=== PATIENT | male | born 1970 ===

== ENCOUNTER → 2023-09-03 08:24 | Outpatient (BNVA) | payer OTHER, SELFPAY | PROVIDERS: Visit Provider Registered Nurse | DX: S83.411A Sprain of medial collateral ligament of right knee, initial encounter (principal); W17.89XA Other fall from one level to another, initial encounter | CPT/HCPCS: 73564; 99204 ==

== ENCOUNTER → 2023-09-09 07:50 | Outpatient (BNVA) | payer OTHER, SELFPAY | PROVIDERS: Visit Provider Registered Nurse | DX: S83.411A Sprain of medial collateral ligament of right knee, initial encounter (principal); W17.89XA Other fall from one level to another, initial encounter | CPT/HCPCS: 99213 ==

== ENCOUNTER → 2023-09-15 07:52 | Outpatient (BNVA) | payer OTHER, SELFPAY | PROVIDERS: Visit Provider Registered Nurse | DX: S83.411A Sprain of medial collateral ligament of right knee, initial encounter (principal); W17.89XA Other fall from one level to another, initial encounter | CPT/HCPCS: 73610; 99214 ==

== ENCOUNTER → 2023-09-19 14:43 | Outpatient (BNVA) | payer OTHER, SELFPAY | PROVIDERS: Visit Provider Registered Nurse | DX: S83.411A Sprain of medial collateral ligament of right knee, initial encounter (principal); W17.89XA Other fall from one level to another, initial encounter | CPT/HCPCS: 99213 ==

== ENCOUNTER → 2023-09-30 10:17 | Outpatient (BNVA) | payer OTHER, SELFPAY | PROVIDERS: PCP Internal Medicine; Visit Provider Physician Assistant Medical | DX: S46.811A Strain of other muscles, fascia and tendons at shoulder and upper arm level, right arm, initial encounter (principal); S83.411A Sprain of medial collateral ligament of right knee, initial encounter; W17.89XA Other fall from one level to another, initial encounter | CPT/HCPCS: 73700; 99214 ==

== ENCOUNTER → 2023-10-14 10:03 | Outpatient (BNVA) | payer OTHER, SELFPAY | PROVIDERS: PCP Internal Medicine; Visit Provider Physician Assistant Medical | DX: S83.411D Sprain of medial collateral ligament of right knee, subsequent encounter (principal); S80.01XD Contusion of right knee, subsequent encounter; W17.89XD Other fall from one level to another, subsequent encounter | CPT/HCPCS: 99214 ==

== ENCOUNTER 2023-10-22 11:00 | Outpatient (RCR) | payer OTHER, SELFPAY ==
--- NOTE | 2023-10-01 11:37 | MHC.PT.EP ---
[facility] [place] Office [place] Office [place] Office [address] Jayesh Jeff [address] [phone] F: [phone] F: [phone] F: [phone] F: [phone] Physical Therapy Plan of Care Date of Evaluation: 10/01/23 Date of Surgery: Diagnosis: B knee pain Assessment: 53 y/o male referred to PT from work connection with B knee pain. 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 He has been OOW since injury and reports pain and difficulty with squatting, walking, standing, kneeling, stairs, sleeping, and work duties (climbing, squatting, crawling under truck, lifting). Examination shows hematoma medial tibial plateau region ~6x6cm, TTP in that region, poor patella mobility, decreased knee flexion ROM (most likely d/t hematoma compression), decreased R LE strength (most likely d/t pain) and impaired gait pattern. Educated pt on hematoma management and desensitization. Recommend PT 2x/week for 5 weeks to address impairments, implement HEP, and optimize functional mobility Frequency and Duration: The patient will be seen 2x/week for 5 weeks Short Term Goals: 3 weeks I with HEP Pt will reports 50% decrease in pain with functional mobility Volunteer Patient Representative Goals: 5 weeks I with HEP and self management of sx Pt will improve LEFS to 40/80 to show functional improvement (IR 19/80) Pt will be able to ambulate without limp > 20 min and pain < 3/10 Treatment Plan: Modalities to reduce pain, spasms and effusion. Manual therapy to restore motion and function. Therapeutic exercise to improve strength and flexibility. Neuromuscular re-education for posture and balance. Therapeutic activities to return to functional activities of daily living. Electronically signed by: Maddy Mei PT Please sign and return to therapist. Thank you for your referral.
--- NOTE | 2023-12-09 11:46 | MHC.PT.EP ---
[facility] [place] Office [place] Office [place] Office [address] Jayesh Jeff [address] [phone] F: [phone] F: [phone] F: [phone] F: [phone] Physical Therapy Plan of Care Date of Evaluation: 10/01/23 Date of Surgery: Diagnosis: B knee pain Assessment: 53 y/o male referred to PT from work connection with B knee pain. 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 He has been OOW since injury and reports pain and difficulty with squatting, walking, standing, kneeling, stairs, sleeping, and work duties (climbing, squatting, crawling under truck, lifting). Examination shows hematoma medial tibial plateau region ~6x6cm, TTP in that region, poor patella mobility, decreased knee flexion ROM (most likely d/t hematoma compression), decreased R LE strength (most likely d/t pain) and impaired gait pattern. Educated pt on hematoma management and desensitization. 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 Manual therapy to restore motion and function. Therapeutic exercise to improve strength and flexibility. Neuromuscular re-education for posture and balance. Therapeutic activities to return to functional activities of daily living. Electronically signed by: Maddy Mei PT Please sign and return to therapist. Thank you for your referral.
--- NOTE | 2023-12-09 11:47 | MHC.PT.DC ---
[facility] [place] Office [place] Office [place] Office [address] Jayesh Jeff 140 [facility] [phone] F: [phone] F: [phone] F: [phone] F: [phone] Physical Therapy Discharge Report Diagnosis: B knee pain Date of Surgery: Date of Evaluation: 10/01/23 Date of Discharge: 12/09/23 Treatments to Date: 7 Cancellations to Date: 0 No Shows to Date: 0 Discharge Status: Independent with HEP Recommend MD Follow-up Discharge Summary: Pt called to cancel remaining appointments reporting he will be referred to ortho for further management. At time of last appointment, he had made some functional gains such as more symmetrical gait pattern Electronically signed by: Maddy Mei PT Please sign and return to therapist. Thank you for your referral.
== END 2023-12-09 11:47 | disposition home or self-care (01) ==
LOC: HO.PT 11:00
PROVIDERS: PCP Internal Medicine; Visit Provider Registered Nurse
DX: M25.561 Pain in right knee (principal)
CPT/HCPCS: 97110; 97140; 97161; 97530

== ENCOUNTER 2023-10-29 14:18 | Outpatient (REF) | payer OTHER, SELFPAY ==
--- NOTE | ~2023-10-29 | XR_ITS ---
EXAMINATION: XR KNEE, RIGHT CLINICAL INFORMATION: Right knee pain. COMPARISON: CT dated 09/30/2023. TECHNIQUE: AP, lateral, tunnel, and sunrise views of the right knee. FINDINGS: Tricompartmental marginal osteophytes. Joint spaces appear relatively well preserved. No joint effusion. Small enthesopathic spur at the quadriceps tendon insertion on the patella. No fracture or malalignment. Soft tissues of the anteromedial aspect of the tibial plateau appear less swollen as compared to prior, consistent with improvement in the previously seen hematoma. XR/XR knee RT 3V IMPRESSION: 1. No acute osseous findings. 2. Minimal tricompartmental osteoarthritis. 3. Improving soft tissue swelling at the anteromedial aspect of the tibial plateau. Electronically signed by: Allan Mueller MD 11/18/2023 10:44 PM EDT
== END 2023-10-29 14:19 | disposition home or self-care (01) ==
LOC: HO.HOSX 14:18
PROVIDERS: PCP Internal Medicine; Visit Provider Orthopaedic Surgery
DX: M25.561 Pain in right knee (principal)
CPT/HCPCS: 73562; 99202

== ENCOUNTER 2023-10-29 14:50 | Outpatient (AMB) | payer OTHER, SELFPAY ==
--- NOTE | 2023-10-29 14:52 | A.OFFVIS_ITS ---
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 Patient reports he fell from a box truck 4 feet from the ground landing on to his right knee while working. The patient twisted his right knee and had acute onset of pain. He denies any pain or instability prior to this injury. Most of the pain is along the medial aspect of his knee. States that the hematoma has resolved somewhat. He has done physical therapy exercises which aggravated his pain. He has tried Tylenol and meloxicam which gave him minimal relief. Allergies No Known Allergies Allergy (Verified 10/29/23 14:59) Medication List - Last Reconciled 10/29/23 by Tony Short MD cyclobenzaprine 10 mg PO BEDTIME PRN meloxicam 1 to 2 orally daily PRN; 14 days Physical Exam Const Other: Well-nourished well-developed very friendly male awake alert and oriented x3 in no acute distress Extrem Other: Bilateral lower extremity examination shows good capillary refill, no skin lesions noted, normal sensation light touch Right knee examination shows a mild effusion, minimal crepitus with range of motion, tenderness along his medial joint line, positive Darryn's test, no instability Results Reviewed Results Reviewed: X-rays of the patient's right knee show minimal diffuse joint space narrowing, no acute bony abnormalities Assessment & Plan Assessment & Plan (1) Right knee pain: Code(s): M25.561 - Pain in right knee Category: Medical Plan Mr. Ames presents with right knee pain and mechanical symptoms most likely due to a tear of his medial meniscus. Thus, I will send the patient for an MRI of his right knee for further evaluation. I will see him back once the MRI is completed to discuss the findings and treatment options. I will not change his work status at this time. Feel free to call me at any time should questions regarding his orthopedic management arise. I spent 20 minutes in reviewing the patient's records and imaging studies, seeing the patient and documenting in the medical record. Orders: Orders XR knee RT 3V Today M25.561 - Pain in right knee MR knee RT wo con Today M25.561 - Pain in right knee Coding Level of Care Code New Pt Level 3 (51485) Diagnoses Right knee pain M25.561
== END 2023-10-29 15:11 | disposition home or self-care (01) ==
PROVIDERS: PCP Internal Medicine; Visit Provider Orthopaedic Surgery
DX: M25.561 Pain in right knee (principal)
CPT/HCPCS: 99203

== ENCOUNTER → 2023-10-31 10:00 | Outpatient (BNVA) | payer OTHER, SELFPAY | PROVIDERS: PCP Internal Medicine; Visit Provider Registered Nurse | DX: S83.411D Sprain of medial collateral ligament of right knee, subsequent encounter (principal); W17.89XD Other fall from one level to another, subsequent encounter | CPT/HCPCS: 99213 ==

== ENCOUNTER 2023-12-20 10:21 | Outpatient (REF) | payer OTHER, SELFPAY ==
--- NOTE | ~2023-12-20 | MR_ITS ---
EXAMINATION: MR KNEE WITHOUT CONTRAST, RIGHT CLINICAL INFORMATION: Right knee pain. COMPARISON: Radiographs 10/29/2023. CT 09/30/2023. TECHNIQUE: MRI of the knee without contrast was performed using routine sequences on a high-field scanner. FINDINGS: MENISCI: Medial Meniscus: Ill-defined degenerative tearing at the root of the posterior horn and irregular tearing along the superior articular surface throughout the posterior horn to the junction with the meniscal body. There is a horizontal component extending to the meniscal periphery with a small parameniscal cyst. Lateral Meniscus: Intact. LIGAMENTS: Cruciate: Intact. Collateral: Intact. Severe popliteus tendinopathy. EXTENSOR MECHANISM: Chronic patellar tendinosis and mild proximal patellar tendinitis. Superficial subcutaneous edema and trace bursitis. ARTICULAR CARTILAGE/BONE: Patellofemoral Compartment: Areas of cartilage thinning and surface irregularity of the central and medial trochlea. Foci of cartilage signal heterogeneity and minimal surface irregularity of the medial patellar facet. Medial Compartment: Mild cartilage thinning and surface irregularity throughout the weightbearing femoral condyle with small focus of subchondral marrow edema and small marginal osteophytes. Lateral Compartment: Focal partial-thickness cartilage loss of the posterior weightbearing femoral condyle and signal heterogeneity/surface irregularity of the posterior-most non-weightbearing femoral condyle. JOINT FLUID AND BURSAE: Trace joint effusion and Reich's cyst. Subtle residual evidence of the subcutaneous hematoma at the anteromedial aspect of the proximal tibia with linear low signal, subcentimeter residual hematoma, and mild subcutaneous edema. MR/MR knee RT wo con IMPRESSION: 1. Ill-defined degenerative tearing of the posterior horn of the medial meniscus extending to the junction with the meniscal body. 2. Mild tricompartmental osteoarthritis with a trace joint effusion and Reich's cyst. 3. Chronic patellar tendinosis and mild proximal patellar tendinitis. 4. Severe popliteus tendinopathy. 5. Subtle residual evidence of the subcutaneous hematoma at the anteromedial aspect of the proximal tibia. Electronically signed by: Tin Key MD 12/24/2023 09:30 AM EDT
--- NOTE | ~2023-12-20 | XR_ITS ---
EXAMINATION: XR ORBITS, 2 VIEWS CLINICAL INFORMATION: Pre-MRI COMPARISON: None available. TECHNIQUE: 2 views of the orbits FINDINGS: No radiopaque densities are noted in the region of the orbits. Radiopaque dental hardware noted on the right. Osseous structures are intact. Soft tissues are unremarkable. XR/XR pre mri screening IMPRESSION: 1. No radiopaque densities are noted in the region of the orbits. 2. Radiopaque dental hardware noted on the right. Electronically signed by: Candida Zhao MD 12/20/2023 11:40 AM EDT
== END 2023-12-20 10:22 | disposition home or self-care (01) ==
LOC: HO.MRI 10:21
PROVIDERS: PCP Internal Medicine; Visit Provider Orthopaedic Surgery
DX: M25.561 Pain in right knee (principal)
CPT/HCPCS: 73721

== ENCOUNTER 2024-01-07 09:51 | Outpatient (AMB) | payer OTHER, SELFPAY ==
--- NOTE | 2024-01-07 09:53 | MHC.OFFVIS ---
Intake Visit Reasons: Right knee pain and giving way Intake Note: Chato is a 53 year old male who presents today as a new patient for a evaluation of his right knee, DOI 09/02/23. Patient reports he fell from a box truck 4 feet from the ground landing on to his right knee while working. The patient twisted his right knee and had acute onset of pain. He denies any pain or instability prior to this injury. Most of the pain is along the medial aspect of his knee. States that the hematoma has resolved somewhat. He has done physical therapy exercises which aggravated his pain. He has tried Tylenol and meloxicam which gave him minimal relief. He states that his right knee will give out several times per day. Allergies No Known Allergies Allergy (Verified 01/07/24 09:56) Medication List - Last Reconciled 01/07/24 by Tony Short MD cyclobenzaprine 10 mg PO BEDTIME PRN ibuprofen 800 mg PO Q8H PRN Physical Exam Const Other: Well-nourished well-developed very friendly male awake alert and oriented x3 in no acute distress Extrem Other: Bilateral lower extremity examination shows good capillary refill, no skin lesions noted, normal sensation light touch Right knee examination shows a minimal effusion, minimal crepitus with range of motion, tenderness along his medial joint line, positive Darryn's test, no instability Results Reviewed Results Reviewed: Standing full weight-bearing x-rays of the patient's right knee show mild diffuse joint space narrowing, no acute bony abnormalities MRI of the patient's right knee shows mild diffuse degenerative changes as well as a tear of the medial meniscus Assessment & Plan Assessment & Plan (1) Tear of medial meniscus of right knee: Code(s): S83.241A - Other tear of medial meniscus, current injury, right knee, initial encounter Category: Medical Plan Mr. Ames presents with progressively worsening right knee pain and mechanical symptoms due to a tear of his medial meniscus. I had a lengthy discussion with the patient regarding the treatment options. At this point he has failed continued non operative treatments. The risks and benefits of right knee arthroscopic surgery were discussed at length with the patient. The patient wishes to proceed with surgery. Surgery will most likely involve right knee arthroscopic partial medial meniscectomy. The patient does understand that he may not get 100% relief of his symptoms depending on the severity of his degenerative changes. The patient will be scheduled for next available date. He will follow-up as instructed. Feel free to call me at any time should questions regarding his orthopedic management arise. I spent 21 minutes in reviewing the patient's records and imaging studies, seeing the patient and documenting in the medical record. Medications: New ibuprofen 800 mg PO Q8H PRN 90 tabs 2RF pain Discontinued meloxicam Discontinued Reason: Doctor's Order 1 to 2 orally daily PRN; 14 days 28 tabs 0RF pain Coding Level of Care Code Est Pt Level 3 (93549) Complex EM visit Add On G2211 Diagnoses Tear of medial meniscus of right knee S83.241L
== END 2024-01-07 10:12 | disposition home or self-care (01) ==
LOC: HO.HOS 09:52
PROVIDERS: PCP Internal Medicine; Visit Provider Orthopaedic Surgery
DX: S83.241A Other tear of medial meniscus, current injury, right knee, initial encounter (principal)
CPT/HCPCS: 99213; G2211

== ENCOUNTER → 2024-01-07 09:51 | Outpatient (BNVA) | payer OTHER, SELFPAY | PROVIDERS: PCP Internal Medicine; Visit Provider Orthopaedic Surgery | DX: S83.241A Other tear of medial meniscus, current injury, right knee, initial encounter (principal) | CPT/HCPCS: 99212 ==

== ENCOUNTER → 2024-02-16 11:03 | Outpatient (BNV) | payer OTHER, SELFPAY | PROVIDERS: PCP Internal Medicine; Visit Provider Orthopaedic Surgery | DX: S83.241A Other tear of medial meniscus, current injury, right knee, initial encounter (principal) | CPT/HCPCS: 29881 ==

== ENCOUNTER → 2024-02-16 11:03 | Day surgery (SDC) | payer OTHER, SELFPAY ==
[2024-02-12 11:40] VITALS: BMI 33.2
--- NOTE | 2024-02-12 12:16 | HO.ANESPROP2 ---
Documented by User: Jennifer Martinez NP 02/12/24 12:24 HPI - Anesthesia Eval Consult details Narrative: 53yo M for Right Knee Arthroscopy,partial medial meniscectomy Cardiac optimized to proceed with knee scope prior to AAA repair. (Planned surgical repair for 5.1cm AAA) Case reviewed with Dr Salinas. [facility] Active Problems Active Problems: All Active Problems Tear of medial meniscus of right knee (Acute) Right knee pain (Acute) Past Medical History Medical History Tobacco abuse Gout Anxiety Ascending aortic aneurysm HTN (hypertension) Surgical History Surgical History Hx of hand surgery Social History Social History Are you a primary career technical education teacher to a significant other at home: No Do you presently have visiting nurse or other home services: No Patient Tobacco Use Status: Current everyday Tobacco user Tobacco use type: Cigarette Cigarette Packs Per Day: 1 Cigarettes Per Day: 20.0 Years Smoked: 32 Use of substances other than those prescribed or required for medical reasons: Yes Substance Use Type Other:: advised to hold 3 days pre-op / former opioid use w/suboxone in remote past Have you been hit, kicked, punched, or otherwise hurt by someone within the past year? If so, by whom?: No Spiritual Healthcare Practices: none Druze Healthcare Practices: Shinto Cultural Healthcare Practices: none Are you DNR?: No Advance Directives: No (brother is primary contact) Advance Directives Information Provided: Yes (brochure mailed) Advance Directives on File: No Recently lost weight without trying: No Eating poorly because of decreased appetite: No Nutrition Risks: No Nutritional Risk Poor oral hygiene: Yes (one missing front tooth/some cracked teeth) Meds Allergies Allergy/AdvReac Type Severity Reaction Status Date / Time No Known Allergies Allergy Verified 02/16/24 11:47 Active Medications: Current Medications Cefazolin Sodium/Dextrose (Ancef) 2 gm in 50 mls @ 100 mls/hr IV PREOP ONE Stop: 02/16/24 06:22 Home Medications ?Medication ?Instructions ?Recorded ?Confirmed ?Last Taken ?Type amlodipine 10 mg tablet 10 mg PO DAILY 01/26/24 02/12/24 02/16/24 History cholecalciferol (vitamin D3) 50 50 mcg PO DAILY 01/26/24 02/12/24 Unknown History mcg (2,000 unit) tablet (Vitamin D3) metoprolol succinate 50 mg 100 mg PO DAILY 01/26/24 02/12/24 02/16/24 History tablet,extended release 24 hr olmesartan 40 mg tablet 40 mg PO DAILY 01/26/24 02/12/24 Unknown History sertraline 50 mg tablet 50 mg PO DAILY 01/26/24 02/12/24 Unknown History bupropion HCl 150 mg tablet,12 hr 150 mg PO BID 02/12/24 02/12/24 Unknown History sustained-release lisinopril 10 mg tablet 10 mg PO DAILY 02/12/24 02/12/24 Unknown History varenicline 1 mg tablet 1 mg PO BID 02/12/24 02/12/24 Unknown History Exam Height,Weight and Vital Signs: Height 5 ft 11 in Weight 107.955 kg Narrative Narrative: ECG 12-Lead ? 10:20:22 Ventricular Rate: 84 BPM Atrial Rate: 84 BPM P-R Interval: 162 ms QRS Duration: 94 ms Q-T Interval: 370 ms QTC Calculation(Bazett): 437 ms P Jewett: 15 degrees R Jewett: -5 degrees T Jewett: -6 degrees Normal sinus rhythm Minimal voltage criteria for LVH, may be normal variant Borderline ECG No previous ECGs available CT Angio Chest 12/2023 IMPRESSION: Aneurysm of the aortic root and ascending segment with maximum diameter of the ascending segment 5.0 x 4.8 cm. No evidence of dissection or ulcerated plaque. ECHO 12/2023 Nml LV chamber size. Conc LVH. Low nml EF 50-55% Trileaflet aortic valve trace insuffiency Trace mitral insufficiency Dilation of sinus of valsalva ascending and transverse aorta is unchanged Cardiac cath 11/2023 on chart Assessment and Plan Assessment Anesthesia Assessment: Chart Reviewed Documented by User: Niurka Wright MD 02/16/24 13:05 [facility] Active Problems Active Problems: All Active Problems Tear of medial meniscus of right knee (Acute) Right knee pain (Acute) Ascending aortic aneurysm- 5.1x 4.8. Asymptomatic. Patient aware of risk of dissection with BP swings. BP today at last check 120s/94. Patient took amlodipine and metoprolol this morning. Patient was seen by Cardiology and assessed to be low risk for complications. Patient wishes to have knee surgery before aneurysm surgery and is prepared to take the risk of any complication with the aneurysm Smoker - last this morning Marijuana use- last yesterday Remote h/o opioid use and suboxone therapy Past Medical History Medical History Tobacco abuse Gout Anxiety Ascending aortic aneurysm HTN (hypertension) Family History Family history of problems with anesthesia: No Surgical History Surgical History Hx of hand surgery History of Problems with Anesthesia: No Social History Social History Are you a primary career technical education teacher to a significant other at home: No Do you presently have visiting nurse or other home services: No Patient Tobacco Use Status: Current everyday Tobacco user Tobacco use type: Cigarette Cigarette Packs Per Day: 1 Cigarettes Per Day: 20.0 Years Smoked: 32 Use of substances other than those prescribed or required for medical reasons: Yes Substance Use Type Other:: advised to hold 3 days pre-op / former opioid use w/suboxone in remote past Have you been hit, kicked, punched, or otherwise hurt by someone within the past year? If so, by whom?: No Spiritual Healthcare Practices: none Druze Healthcare Practices: Shinto Cultural Healthcare Practices: none Are you DNR?: No Advance Directives: No (brother is primary contact) Advance Directives Information Provided: Yes (brochure mailed) Advance Directives on File: No Recently lost weight without trying: No Eating poorly because of decreased appetite: No Nutrition Risks: No Nutritional Risk Poor oral hygiene: Yes (one missing front tooth/some cracked teeth) Meds Allergies Allergy/AdvReac Type Severity Reaction Status Date / Time No Known Allergies Allergy Verified 02/16/24 11:47 Home Medications ?Medication ?Instructions ?Recorded ?Confirmed ?Last Taken ?Type amlodipine 10 mg tablet 10 mg PO DAILY 01/26/24 02/12/24 02/16/24 History cholecalciferol (vitamin D3) 50 50 mcg PO DAILY 01/26/24 02/12/24 Unknown History mcg (2,000 unit) tablet (Vitamin D3) metoprolol succinate 50 mg 100 mg PO DAILY 01/26/24 02/12/24 02/16/24 History tablet,extended release 24 hr olmesartan 40 mg tablet 40 mg PO DAILY 01/26/24 02/12/24 Unknown History sertraline 50 mg tablet 50 mg PO DAILY 01/26/24 02/12/24 Unknown History bupropion HCl 150 mg tablet,12 hr 150 mg PO BID 02/12/24 02/12/24 Unknown History sustained-release lisinopril 10 mg tablet 10 mg PO DAILY 02/12/24 02/12/24 Unknown History varenicline 1 mg tablet 1 mg PO BID 02/12/24 02/12/24 Unknown History Exam Height,Weight and Vital Signs: Height 5 ft 11 in Weight 107.955 kg Vital Signs Temp Pulse Resp BP Pulse Ox O2 Del Method 02/16/24 11:49 98.2 F 82 16 123/96 H 96 Room Air Pertinent Lab Results Pertinent Lab Results: Lab Results 02/16/24 Range/Units 11:43 WBC 8.8 (4.8-10.8) X10*3/uL RBC 5.64 (4.60-5.80) X10*6/uL Hgb 16.1 (14.0-18.0) g/dl Hct 46.2 (42.0-52.0) % MCV 81.9 (80.0-98.0) fL MCH 28.5 (27.0-33.0) pg MCHC 34.8 (31.0-36.0) g/dl RDW 12.5 (11.0-16.0) % Plt Count 277 (160-400) X10*3/uL MPV 10.7 (9.4-12.4) fL Absolute Nucleated RBC 0.000 (0.0-0.012) X10*3/uL Nucleated RBC % (auto) 0.0 (0.0-0.2) /100WBC Sodium 142 (135-145) mmol/L Potassium 3.8 (3.3-5.1) mmol/L Chloride 106 (96-108) mmol/L Carbon Dioxide 27 (22-29) mmol/L Anion Gap 13 (12-20) BUN 16 (9-16) mg/dL Creatinine 0.90 (0.5-1.4) mg/dL Estim Creat Clear Calc 115.9 Estimated GFR > 60 Fasting Glucose 94 (60-99) mg/dL Calcium 9.6 (8.4-10.2) mg/dL Airway Mallampati Class: II TM Dist: >3cm Neck ROM: Full Loose/Missing/Broken Teeth: Yes (Many broken, many missing teeth. Denies loose teeth) Heart: RRR Lungs: CTAB Assessment and Plan Assessment Anesthesia Assessment: Anesthesia Plan Discussed and Chart Reviewed Final Anesthetic Review Family History of Problems with Anesthesia: No History of Problems with Anesthesia: No NPO: Yes ASA Class: III Final Preanesthetic Review: No Changes in Pt Med Stat, Meds/Allgs Chart Reviewed, Consent Obtained/Reviewed and Anes Risks/Benef Reviewed Patient Risk: Intermediate Procedure Risk: Low Assessment/Block/Sedation in SS: Assess/Block/Sedation-SS Anesthetic Plan Anesthetic Plan: GA Disposition: Standard PACU
--- OUTSIDE RECORDS SUMMARY | 2024-02-16 11:08 | XMS_ITS | Continuity of Care Document ---
Author Organization [facility] Address [address] [place] [address] Phone Care Team Providers Care Info Specialist Name Role Phone [facility] Unavailable Allergies, Adverse Reactions, Alerts Substance Reaction Status Criticality No Known allergies Medications Medication Instructions Dosage Effective Dates (start - stop) Status Comments Percocet 7.5 mg-325 mg Tab take 1 tablet by ORAL route every 6 hours as needed 1.00 tablet - Active AMLODIPINE BESYLATE-BENAZEPRI L (unknown strength) Not Available - Active OXYCODONE HCL (unknown strength) Not Available - Active Advance Directives Directive Yes / No Effective Date File Name No Information Encounters Encounter Description Practice Location Reason(s) For Visit Diagnoses Date Provider Providers Copied on Encounter [facility], [address] [place] [address], [id number], tel:[phone] [facility] No Information 0 Arnulfo [facility] Olen[facility]. [address], [place], [address], [place]. [phone] [facility], [address] [place] [address], [id number], [place] tel:[phone] [facility] right middle finger pain (chief complaint) No Information Oct- 0-201 0 NYDIA CERDA. [address], [id number], [place], [place], [id number] , [place]. tel:[phone] Referring Provider: Reyes J[address], [address]. tel:[phone] Family History Family Member Type Diagnosis Age At Onset No Information Payers Payer name Insurance type Covered constitution party ID Authorravin stocktonhakeem(s) [facility] [id number] Social History Type Description Quantity Date Captured Comments Sex Male Smoking Status No Information Chief Complaint And Reason For Visit No Information Reason For Referral Reason For Referral No Information History Of Present Illness Encounter Date Complaint History Of Prese nt Illness No Information Functional Status Date Functional Assessmen t No Information Instructions Date Instruction Additional Infor mation No Information Assessments Type Assessment Date No Information Patient Care Teams Name Effective Dates (start - stop) Status Members No Information
[2024-02-16 11:49] VITALS: BP 123/96; PULSE 82; RESP 16; TEMP 36.8; O2SAT 96
[2024-02-16 11:52] LABS: Hematocrit 46.2 % (42.0-52.0); Hemoglobin 16.1 g/dl (14.0-18.0); Mean Corpuscular HGB Conc 34.8 g/dl (31.0-36.0); Mean Corpuscular Hemoglobin 28.5 pg (27.0-33.0); Mean Corpuscular Volume 81.9 fL (80.0-98.0); Mean Platelet Volume 10.7 fL (9.4-12.4); Platelet Count 277 X10*3/uL (160-400); Red Blood Count 5.64 X10*6/uL (4.60-5.80); Red Cell Distribution Width 12.5 % (11.0-16.0); White Blood Count 8.8 X10*3/uL (4.8-10.8)
[2024-02-16 11:58] LABS: Anion Gap 13 (12-20); Blood Urea Nitrogen 16 mg/dL (9-16); Calcium 9.6 mg/dL (8.4-10.2); Carbon Dioxide 27 mmol/L (22-29); Chloride 106 mmol/L (96-108); Creatinine Clr Calc Pharmacy 115.9; Estimated Glomerular Filt Rate > 60; Glucose Fasting 94 mg/dL (60-99); Potassium 3.8 mmol/L (3.3-5.1); Sodium 142 mmol/L (135-145)
[2024-02-16] MEDS: Lactated Ringers 1,000 ML 100 ML IVCONT (11:58)
[2024-02-16 14:40] VITALS: BP 132/96; PULSE 60; RESP 16; TEMP 36.1; O2SAT 94
[2024-02-16 14:45] VITALS: BP 122/90; PULSE 59; RESP 16; O2SAT 94
[2024-02-16 14:50] VITALS: BP 134/96; PULSE 59; RESP 16; O2SAT 94
[2024-02-16 14:55] VITALS: BP 128/96; PULSE 66; RESP 16; O2SAT 94
--- NOTE | 2024-02-16 14:57 | PM.OP ---
Brief Operative Note Date of Service: 02/16/24 Pre-op diagnosis: Right knee medial meniscus tear Post-op diagnosis: same Procedure: Right knee arthroscopic partial medial meniscectomy Implants: None Surgeon: Tony Short MD Anesthesia: GLMA Was an Carpenters Helper used for this Procedure?: No Estimated blood loss (mL): 10 Pathology: none sent Condition: stable Disposition: PACU
--- NOTE | 2024-02-16 15:01 | W.PM.OPN ---
Operative Note Operative Note Date of Service: 02/16/24 Narrative: After the patient was identified as Chato Ames and his right knee was initialed by myself they were brought to the operating room where general anesthesia was induced by the anesthesiologist in routine fashion. The patient was given 2 g of IV Ancef for infection prophylaxis. A formal time-out was completed. The patient's right lower extremity was prepped and draped in sterile fashion. Marcaine with epinephrine was injected into the planned incision sites as well as their right knee joint. A # 11 scalpel blade was used to make an anterolateral portal 1 cm proximal to the joint line and 1 cm lateral to the patellar tendon. Blunt trocar technique was used into the suprapatellar pouch with the knee in extension. Diagnostic arthroscopy showed multiple bands of thickened plica which would be excised at the end of the procedure. There were no loose bodies or abnormalities found in either the medial or lateral gutters. There were diffuse grade 1 degenerative changes of the undersurface of the patella as well as grade 1 degenerative changes of the trochlear groove. The patient's knee was flexed to 45 degrees and a valgus force was placed upon it. The medial compartment was entered. An anteromedial portal was made 1 cm proximal to the joint line and 1 cm medial to the patellar tendon. Probing of the medial meniscus showed a radial tear of the posterior horn. A partial medial meniscectomy was performed using the arthroscopic shaver. Following the partial meniscectomy the remainder of the meniscus tissue was stable. There were diffuse grades 1 and 2 degenerative changes of the medial femoral condyle as well as diffuse grade 1 degenerative changes of the medial tibial plateau. The articular surface of the medial femoral condyle was made smooth using the arthroscopic shaver. The patient's knee was then placed into a neutral position. There was no injury to the anterior cruciate ligament. The patient's knee was then placed into the figure of 4 position and the lateral compartment was entered. There were minimal degenerative changes of the lateral femoral condyle and lateral tibial plateau. There was no evidence of lateral meniscus tearing. The patient's knee was once again brought into extension and the suprapatellar pouch was entered. The arthroscopic shaver and the ArthroCare Wand were used to excise the thickened bands of plica. The knee joint was irrigated and then drained. All arthroscopic instruments were removed. The 2 portals were closed with 3-0 nylon interrupted suture. The knee joint was injected with Marcaine. Dry sterile dressing and Ang bandages were placed over the patient's knee. The patient was awoken and extubated in the operating room. They were transferred to the recovery room in stable condition.
[2024-02-16] MEDS: cefTRIAXone sodium 1 GM VIAL IVPUSH (15:29)
== END | disposition home or self-care (01) ==
PROVIDERS: Nurse Practitioner; PCP Internal Medicine; Visit Provider Orthopaedic Surgery
PROC: (CPT 29870; principal; 2024-02-16 13:30)
DX: S83.241A Other tear of medial meniscus, current injury, right knee, initial encounter (principal); M67.51 Plica syndrome, right knee; I10 Essential (primary) hypertension; M10.9 Gout, unspecified; Z79.899 Other long term (current) drug therapy; F17.210 Nicotine dependence, cigarettes, uncomplicated
CPT/HCPCS: 29881; 36415; 80048; 85027; J0131; J0171; J0690; J0696; J1100; J2003; J2250; J2405; J2704; J2795; J3010

== ENCOUNTER 2024-02-26 10:38 | Outpatient (AMB) | payer OTHER, SELFPAY ==
--- OUTSIDE RECORDS SUMMARY | 2024-02-26 10:40 | XMS_ITS | Continuity of Care Document ---
Author Organization [facility] Address [address] [place] [address] Phone Care Team Providers Care Quarry Manager Name Role Phone [facility] Unavailable Allergies, Adverse Reactions, Alerts Substance [...] Copied on Encounter [facility], [address] [place] [address], [id number], tel:[phone] [facility] No Information [address] [facility] Olena. [address], [place], [address], [place]. [phone] [facility], [address] [place] [address], [id number], [place] tel:[phone] [facility] right middle finger pain (chief complaint) No Information Oct- 0-201 0 NYDIA CERDA. [address], [id number], [place], [place], [id number] , [place]. [phone] Referring Provider: Reyes J[address], [address]. tel:[phone] Family History Family Member Type Diagnosis Age At Onset No Information Payers Payer name Insurance type Covered alliance party ID Authorravin stocktonhakeem(s) [facility] [id number] Social History Type Description Quantity Date Captured [...]
--- NOTE | 2024-02-26 10:44 | A.OFFVIS_ITS ---
Intake Visit Reasons: PO RT knee 02/16/24 Intake Note: Chato is a 53 year old male who presents today for his first post operative appointment after undergoing right knee arthroscopy on 02/16/24. He reports mild to moderate discomfort in his right knee. He denies any fevers or chills. He has been doing gentle stretching exercises. He would like to go to formal physical therapy. Allergies No Known Allergies Allergy (Verified 02/26/24 10:45) Medication List - Last Reconciled 02/26/24 by Tony Short MD amlodipine 10 mg PO DAILY bupropion HCl SR 150 mg PO BID cholecalciferol (vitamin D3) (Vitamin D3) 50 mcg PO DAILY ibuprofen 800 mg PO Q8H PRN lisinopril 10 mg PO DAILY metoprolol succinate ER 100 mg PO DAILY olmesartan 40 mg PO DAILY oxycodone 5 mg PO Q6H PRN 5 days sertraline 50 mg PO DAILY varenicline 1 mg PO BID PFSH Medical History Tobacco abuse Gout Anxiety Ascending aortic aneurysm HTN (hypertension) Surgical History Hx of hand surgery Social History Are you a primary career development coordinator to a significant other at home: No Do you presently have visiting nurse or other home services: No Patient Tobacco Use Status: Current everyday Tobacco user Tobacco use type: Cigarette Cigarette Packs Per Day: 1 Cigarettes Per Day: 20.0 Years Smoked: 32 Physical Exam Extrem Other: Right knee examination shows that the surgical incisions are healing well, no erythema, mild discomfort with range of motion, no instability Assessment & Plan Assessment & Plan (1) Right knee pain: Code(s): M25.561 - Pain in right knee Category: Medical Plan Mr. Ames is doing fairly well after undergoing right knee arthroscopic surgery on 02/16/2024. His sutures were removed and Steri-Strips placed over his incisions. I did give him a prescription to go to formal physical therapy. I will clear him to return to work once his discomfort and strength have improved. I will see him back in 4-6 weeks' time for repeat clinical examination. Feel free to call me at any time should questions regarding his orthopedic management arise. Orders: Orders PT Evaluation and Treatment Today M25.561 - Pain in right knee Coding Level of Care Code Global (82532) Diagnoses Right knee pain M25.561
== END 2024-02-26 11:05 | disposition home or self-care (01) ==
PROVIDERS: PCP Internal Medicine; Visit Provider Orthopaedic Surgery
DX: M25.561 Pain in right knee (principal)
CPT/HCPCS: 99024

== ENCOUNTER → 2024-02-26 10:38 | Outpatient (BNVA) | payer OTHER, SELFPAY | PROVIDERS: PCP Internal Medicine; Visit Provider Orthopaedic Surgery | DX: M25.561 Pain in right knee (principal) | CPT/HCPCS: 99212 ==

== ENCOUNTER → 2024-04-07 10:14 | Outpatient (BNVA) | payer OTHER, SELFPAY | PROVIDERS: PCP Internal Medicine; Visit Provider Orthopaedic Surgery | DX: M25.561 Pain in right knee (principal); Z47.89 Encounter for other orthopedic aftercare; Z98.890 Other specified postprocedural states | CPT/HCPCS: 99212 ==

== ENCOUNTER 2024-05-05 10:07 | Outpatient (AMB) | payer OTHER, SELFPAY ==
--- NOTE | 2024-05-05 10:22 | MHC.OFFVIS ---
Vital Signs 05/05/24 10:23 Height 5 ft 11 in Weight 238 lb BMI 33.2 Intake Visit Reasons: PO RT knee 02/16/24 Intake Note: Chato is a 53 year old male who presents with complaints of mild to moderate discomfort in his right knee after undergoing right knee arthroscopic surgery on 02/16/2024. He denies any fevers or chills. He continues to take ibuprofen for his discomfort. He denies any locking or giving way. He continues to go to formal physical therapy. He does report intermittent weakness in his right knee. He has not yet returned to work. Allergies No Known Allergies Allergy (Verified 05/05/24 10:24) Medication List - Last Reconciled 05/05/24 by Tony Short MD amlodipine 10 mg PO DAILY bupropion HCl SR 150 mg PO BID cholecalciferol (vitamin D3) (Vitamin D3) 50 mcg PO DAILY ibuprofen 800 mg PO Q8H PRN lisinopril 10 mg PO DAILY metoprolol succinate ER 100 mg PO DAILY olmesartan 40 mg PO DAILY sertraline 50 mg PO DAILY varenicline tartrate 1 mg PO BID PFSH Medical History Tobacco abuse Gout Anxiety Ascending aortic aneurysm HTN (hypertension) Surgical History Hx of hand surgery Social History Are you a primary workforce investment act career manager to a significant other at home: No Do you presently have visiting nurse or other home services: No Patient Tobacco Use Status: Current everyday Tobacco user Tobacco use type: Cigarette Cigarette Packs Per Day: 1 Cigarettes Per Day: 20.0 Years Smoked: 32 Physical Exam Vital Signs: BMI result Body Mass Index 33.2 Extrem Other: Right knee examination shows that the surgical incisions are well healed, no erythema, mild discomfort with range of motion, 4+ out of 5 strength with quadriceps testing, no instability Assessment & Plan Assessment & Plan (1) Right knee pain: Code(s): M25.561 - Pain in right knee Category: Medical Plan Mr. Ames continues to do well after undergoing right knee arthroscopic surgery on 02/16/2024. He will continue going to formal physical therapy for now. He is not yet cleared to return to work because of his discomfort and weakness. I will re-evaluate him in 3-4 weeks' time. If his discomfort and strength have improved at that time I will clear him to return to work. Feel free to call me at any time should questions regarding his orthopedic management arise. Orders: Orders PT Evaluation and Treatment Today M25.561 - Pain in right knee Medications: Refilled ibuprofen 800 mg PO Q8H PRN 90 tabs 2RF pain Coding Level of Care Code Global (39820) Diagnoses Right knee pain M25.561
[2024-05-05 10:23] VITALS: BMI 33.2
--- OUTSIDE RECORDS SUMMARY | 2024-05-05 11:52 | XMS_ITS | Continuity of Care Document ---
Author Organization [facility] Address [address] [place] [address] Phone Care Team Providers Care Deportation Officer Name Role Phone [facility] Unavailable Allergies, Adverse Reactions, Alerts [...] Copied on Encounter [facility], [address] [place] [address], [id number], tel:[phone] [facility] No Information 0 Arnulfo [facility] Olena. [address], [place], [address], [place]. [phone] [facility], [address] [place] [address], [id number], [place] tel:[phone] [facility] right middle finger pain (chief complaint) No Information Oct- 0-201 0 NYDIA CERDA. [address], [id number], [place], [place], [id number] , [place]. tel:[phone] Referring Provider: Reyes J[address], [address]. tel:[phone] Family History Family Member Type Diagnosis Age At Onset No Information Payers Payer name Insurance type Covered democrat ID Authorravin stocktonhakeem(s) [facility] [id number] Social History Type Description Quantity Date Captured [...]
--- OUTSIDE RECORDS SUMMARY | 2024-05-05 11:52 | XMS_ITS | Clinical Summary ---
Author Organization [facility] [address] [facility] Address [address] [place] [address] Phone Care Team Providers Care Piping Designer Name Role Phone Laura Solorzano MD Primary Care Provider Allergies No known active allergies Medications amLODIPine (NORVASC) 10 mg tablet Take 1 Tablet by mouth daily for 360 days. 4 05/08/19 25 Active cholecalcifero l (VITAMIN D-3) 125 mcg (5,000 unit) capsule Take 1 capsule (5,000 Units total) by mouth 1 (one) time each day. 4 Active cyclobenzaprin e (FLEXERIL) 5 mg tablet Take 1 Tablet by mouth at bedtime as needed for Muscle spasms for up to 30 days. 4 Active metoprolol succinate (TOPROL-XL) 50 mg 24 hr tablet Take 1 Tablet by mouth daily for 360 days. 4 05/08/19 25 Active nicotine (NICODERM CQ) 21 mg/[address] 1 Patch onto the skin every 24 hours for 30 days. 4 Active sertraline (ZOLOFT) 50 mg tablet Take 1 tablet (50 mg total) by mouth 1 (one) time each day. 4 Active sildenafiL (VIAGRA) 50 mg tablet Take 50 mg once daily as needed 1 hour before sexual activity. 4 Active olmesartan (BENICAR) 40 mg tablet TAKE 1 TABLET BY MOUTH EVERY DAY 90 tablet 3 5 Active olmesartan (BENICAR) 40 mg tablet Take 1 Tablet by mouth daily for 360 days. 4 04/20/19 25 Discontinued Active Problems Problem Noted Date Diagnosed Date Aneurysm of ascending aorta without rupture 05/02 Vitamin D deficiency 05/20/2022 Anxiety 07/20/2021 Obesity (BMI 30.0-34.9) 2017 Chronic right shoulder pain 06/09/2017 Gout 06/09/2017 Hypertension 06/09/2017 Lateral epicondylitis of right elbow 06/09/2017 Encounters Date Type Department Care Team Description 03/11/2024 Telephone [facility] [address] [place] [address] Laura Solorzano MD Medical Records from Last 3 Months Immunizations Name Administration Dates Next Due Influenza Quadravalent, MDCK , 0.5ml, preservative free (Flucelvax) 6mo and older 12/23/2022,12/25/2020 Tdap Tetanus diptheria acell ular pertussis (Boostrix; Adacel) 7yo and older 06/09/2017 Surgical History Surgery Date Site/Laterality Comments OTHER SURGICAL HISTORY PROCEDURE: OK REPAIR EXTENSOR TENDON FINGER W/GRAFT EACH Medical History Medical History Date Comments Encounter for monitoring Sub oxone maintenance therapy 06/09/2017 DX:Encounter for monitoring Suboxone maintenance therapy; COMMENT: History of fentynol abuse HTN (hypertension) DX:HTN (hyper tension) Family History Medical History Relation Name Comments Diabetes Brother 1 No Known Problems Brother 2 Hypertension Father Brain cancer Mother No Known Problems Sister Relation Name Status Comments Brother 1 Alive Brother 2 Alive Father Alive Mother Sister Alive Social History Tobacco Use Types Packs/Day Years Used Date Smoking Tobacco: Every Day Cigarettes Smokeless Tobacco: Never Alcohol Use Standard Drinks/Week Comments No 0 (1 standard drink = 0.6 oz pur e alcohol) Sex and Gender Information Value Date Recorded Sex Assigned at Not on file Legal Sex Male 5:23 PM EST Gender Identity Not on file Sexual Orientation Not on file Obstetrics History Last Filed Vital Signs Vital Sign Reading Time Taken Comments Blood Pressure 120/70 12/17/2023 11:00 AM EDT Pulse 88 10/09/2023 10:04 AM EDT Temperature - - Respiratory Rate - - Oxygen Saturation - - Inhaled Oxygen Concentration - - Weight 108 kg (237 lb) 12/17/2023 11:00 AM EDT Height 180.3 cm (5' 11 ) 12/17/2023 11:00 AM EDT Body Mass Index 33.05 12/17/2023 11:00 AM EDT Plan of Treatment Health Maintenance Due Date Last Done Comments Hepatitis B Vaccines (1 of 3 - 19+ 3-dose series) 08/14/1987 Pneumococcal Vaccine: 50+ Years (1 of 2 - PCV) 08/14/1987 Pneumococcal Vaccine: Pediatrics (0 to 5 Years) and At-Risk Patients (6 to 64 Years) (1 of 2 - PCV) 08/14/1987 Zoster Vaccines (1 of 2) 2018 Colorectal Cancer Screening: Colonoscopy 02/02/2022 Hepatitis C Screening 02/02/2022 Lung Cancer Screening (Low Dose CT) 02/02/2022 Social Influencers of Health Screening 02/02/2022 Hypertension/CHF/CAD Annual BMP Blood Test 05/21/2023 05/20/2022 COVID-19 Vaccine (3 - 2023-2 5 season) 2023 03/27/2021, 07/17/2020 Influenza Vaccine (#1) 2023 , 12/25/2020 Depression Screening 05/12/2024 05/13/2023 Cholesterol Screening (Lipid Panel) 07/20/2026 07/20/2021 DTaP,Tdap,and Td Vaccines (2 - Td or Tdap) 06/10/2027 06/09/2017 HIV Screening Completed 06/09/2017 HIB Vaccines Aged Out No longer eligi ble based on patient's age to complete this topic HPV Vaccines Aged Out No longer eligi ble based on patient's age to complete this topic Hepatitis A Vaccines Aged Out No long er eligible based on patient's age to complete this topic IPV Vaccines Aged Out No longer eligi ble based on patient's age to complete this topic MMR Vaccines Aged Out No longer eligi ble based on patient's age to complete this topic Meningococcal ACWY Vaccine Aged Out N o longer eligible based on patient's age to complete this topic Meningococcal B Vacine Aged Out No lo nger eligible based on patient's age to complete this topic RSV Immunization Patients Under 20 months Aged Out No longer eligible b ased on patient's age to complete this topic Varicella Vaccines Aged Out No longer eligible based on patient's age to complete this topic Procedures Procedure Name Priority Date/Time Associated Diagnosis Comments DEPRESSION SCREENING Routine 05/13/2023 ANNUAL BMP BLOOD TEST Routine 05/20/2022 LIPID PANEL Routine 07/20/2021 HIV SCREENING Routine 06/09/2017 from Last 3 Months or Most Recently Relevant to Health Maintenance Results * Depression Screening (05/13/2023) Pathologist [facility] Depression Screening abstracted [facility] Provider HEALTH MAINTENANCE Final Result * Annual BMP Blood Test (05/20/2022) Pathologist [facility] Annual BMP Blood Test abstracted [facility] Provider HEALTH MAINTENANCE Final Result * (ABNORMAL) Lipid panel (07/20/2021) [facility] LDL/HDL Ratio 5(A) 0 - 4 Triglycerides 161(A) 0 - 150 mg/dL Cholesterol 182 0 - 200 mg/dL HDL 39(A) >=40 mg/dL LDL Cholesterol 111(A) 0 - 100 mg/dL Blood Venous blood specimen / Unknown Result [facility] Provider LAB BLOOD ORDERABLES Isabel l Result * HIV Screening (06/09/2017) [facility] HIV Screening abstracted [facility] Provider HEALTH MAINTENANCE Final Result from Last 3 Months or Most Recently Relevant to Health Maintenance Insurance [facility] Care Teams Piping Designer Relationship Specialty Start Date End Date Laura Solorzano MD [address] [place] [address] PCP - General Internal Medicine 05/05/17
== END 2024-05-05 10:54 | disposition home or self-care (01) ==
PROVIDERS: PCP Internal Medicine; Visit Provider Orthopaedic Surgery
DX: M25.561 Pain in right knee (principal)
CPT/HCPCS: 99024

== ENCOUNTER → 2024-05-05 10:07 | Outpatient (BNVA) | payer OTHER, SELFPAY | PROVIDERS: PCP Internal Medicine; Visit Provider Orthopaedic Surgery | DX: M25.561 Pain in right knee (principal) | CPT/HCPCS: 99212 ==

== ENCOUNTER 2024-05-26 12:47 | Outpatient (AMB) | payer OTHER, SELFPAY ==
--- NOTE | 2024-05-26 12:53 | MHC.OFFVIS ---
Vital Signs 05/26/24 12:54 Height 5 ft 11 in Weight 238 lb BMI 33.2 Intake Visit Reasons: OV-RT knee 02/16/24 work status Intake Note: Chato is a 53 year old male who presents for follow up after undergoing right knee arthroscopic surgery on 02/16/2024. Patient reports today he still has about 2 more PT sessions today. He states his pain has improved since his last visit but still has occasional discomfort. The patient states that he is planning on returning to work next week once his physical therapy is complete. Allergies No Known Allergies Allergy (Verified 05/26/24 12:59) Medication List - Last Reconciled 05/26/24 by Tony Short MD amlodipine 10 mg PO DAILY bupropion HCl SR 150 mg PO BID cholecalciferol (vitamin D3) (Vitamin D3) 50 mcg PO DAILY ibuprofen 800 mg PO Q8H PRN lisinopril 10 mg PO DAILY metoprolol succinate ER 100 mg PO DAILY olmesartan 40 mg PO DAILY sertraline 50 mg PO DAILY varenicline tartrate 1 mg PO BID PFSH Medical History Tobacco abuse Gout Anxiety Ascending aortic aneurysm HTN (hypertension) Surgical History Hx of hand surgery Social History Are you a primary manager primary care to a significant other at home: No Do you presently have visiting nurse or other home services: No Patient Tobacco Use Status: Current everyday Tobacco user Tobacco use type: Cigarette Cigarette Packs Per Day: 1 Cigarettes Per Day: 20.0 Years Smoked: 32 Physical Exam Vital Signs: BMI result Body Mass Index 33.2 Extrem Other: Right knee examination shows that the surgical incisions are well healed, no erythema, minimal discomfort with range of motion, minimal crepitus with range of motion Assessment & Plan Assessment & Plan (1) Right knee pain: Code(s): M25.561 - Pain in right knee Category: Medical Plan Mr. Ames continues to do well after undergoing right knee arthroscopic surgery on 02/16/2024. The patient is now over 3 months out from his surgery. I will clear him to return to work as scheduled next week. I did have him fitted for a knee brace because he does quite a bit of standing and walking while working. I do feel that the brace is a medical necessity to help with his stability at this point. The patient will follow up with me on an as-needed basis should his symptoms worsen in any way. I spent 22 minutes in reviewing the patient's records and imaging studies, seeing the patient and documenting in the medical record. Coding Level of Care Code Est Pt Level 3 (72598) Complex EM visit Add On G2211 Diagnoses Right knee pain M25.561
[2024-05-26 12:54] VITALS: BMI 33.2
== END 2024-05-26 13:13 | disposition home or self-care (01) ==
LOC: HO.HOS 12:48
PROVIDERS: PCP Internal Medicine; Visit Provider Orthopaedic Surgery
DX: M25.561 Pain in right knee (principal)
CPT/HCPCS: 99213; G2211

== ENCOUNTER → 2024-05-26 12:47 | Outpatient (BNVA) | payer OTHER, SELFPAY | PROVIDERS: PCP Internal Medicine; Visit Provider Orthopaedic Surgery | DX: M25.561 Pain in right knee (principal); Z98.890 Other specified postprocedural states | CPT/HCPCS: 99212 ==

== ENCOUNTER 2024-06-02 10:02 | Outpatient (RCR) | payer OTHER, SELFPAY ==
--- NOTE | 2024-03-10 15:54 | MHC.PT.EP ---
[facility] [place] [facility] [place] [facility] [place] [facility] [address] [phone] F: [phone] F: [phone] F: [phone] F: [phone] Physical Therapy Plan of Care Date of Evaluation: 03/10/24 Date of Surgery: 02/16/24 Diagnosis: Right knee arthroscopic partial medial meniscectomy 02/16/24 ()-> PASSIVE/AROM/ GENTLE STRENGTHENING Assessment: 53 YO MALE REF TO PT S/P Rt knee arthroscopic partial medial meniscectomy 02/16/24 (). HE IS REF FOR PROM/AROM/ GENTLE STRENGTHENING. 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 HE HAS COMPENSATORY GAIT, DECR ROM IN Rt KNEE, (+)PF HYPOMOBILITY (LATERAL AND INF), (+) STRENGTH DEFICITS Rt LE, AND FLUCTUATING PAIN IN Rt KNEE. SAMANTHA IS A GOOD PT CANDIDATE TO ADDRESS THE ABOVE FINDINGS AND GUIDE HIM IN HIS POSY-OP COURSE. Frequency and Duration: The patient will be seen 2 x WK x 8 WKS Short Term Goals: DECR Rt KNEE PAIN TO 2-3/10 INITIATE HEP, ADDRESSING HIP FLEXIB IMPROVE Rt KNEE PROM/AROM Chief Inspector Goals: Pt DISPLAYS MORE EFFICIENT GAIT ON LEVEL AND STAIRS-> GENTLE ,GRADUAL PROGR TO SQUAT Pt DEMON SLS Rt LE x 10 SEC Rt LE STRENGTH INCR 4+/5 Pt INDEP W HEP AND SELF SX MGMT TECHN Treatment Plan: Modalities to reduce pain, spasms and effusion. Manual therapy to restore motion and function. Therapeutic exercise to improve strength and flexibility. Neuromuscular re-education for posture and balance. Therapeutic activities to return to functional activities of daily living. Electronically signed by: TROY YORK,PT Please sign and return to therapist. Thank you for your referral.
--- NOTE | 2024-06-02 11:36 | MHC.PT.DC ---
[facility] [place] [facility] [place] [facility] [place] [facility] [address] Jayesh Allenley Randee 140 [facility] [phone] F: [phone] F: [phone] F: [phone] F: [phone] Physical Therapy Discharge Report Diagnosis: Right knee arthroscopic partial medial meniscectomy 02/16/24 () Date of Surgery: 02/16/24 Date of Evaluation: 03/10/24 Date of Discharge: 06/02/24 Treatments to Date: 20 Cancellations to Date: 4 No Shows to Date: Discharge Status: Independent with HEP Discharge Summary: DURING HIS Rt KNEE POST-OP P.T. COURSE SAMANTHA HAS PROGRESSED FAIRLY WELL . HE DISPLAYS MORE EFFICIENT GAIT MECH ON LEVEL GROUND AND STAIRS- HE HAS IMPROVED AROM Rt KNEE, WFL FUNCTIONAL SQUAT, INCR LE STRENGTH, AND INCR HIP/ Rt LE FLEXIBILITY. WE REINFORCED IMPORTANCE OF CONT W HIS HEP AND OVERALL FITNESS TO REDUCE RISK OF EXACERBATION OR STRESS TO Rt KNEE UPON D/C FROM PT. Electronically signed by: TROY YORK,PT Please sign and return to therapist. Thank you for your referral.
== END 2024-06-02 11:36 | disposition home or self-care (01) ==
LOC: HO.PT 10:02
PROVIDERS: PCP Internal Medicine; Visit Provider Orthopaedic Surgery
DX: M25.561 Pain in right knee (principal)
CPT/HCPCS: 97110; 97140; 97162; 97164; 97530

== ENCOUNTER 2024-06-09 09:09 | Outpatient (AMB) | payer OTHER, SELFPAY ==
--- NOTE | 2024-06-09 09:12 | MHC.OFFVIS ---
Vital Signs 06/09/24 09:19 Height 5 ft 11 in Weight 238 lb BMI 33.2 Intake Visit Reasons: OV-RT knee 02/16/24 work status Intake Note: Chato is a 53 year old male who presents for follow up after undergoing right knee arthroscopic surgery on 02/16/2024. Completed PT but he over did it when he was taking down his shed. Patient informed me that he is not ready to return to work yet. He denies any fevers or chills. He would like to return to work on 07/07/2024. Allergies No Known Allergies Allergy (Verified 06/09/24 09:18) Medication List - Last Reconciled 06/09/24 by Tony Short MD amlodipine 10 mg PO DAILY bupropion HCl SR 150 mg PO BID cholecalciferol (vitamin D3) (Vitamin D3) 50 mcg PO DAILY ibuprofen 800 mg PO Q8H PRN lisinopril 10 mg PO DAILY metoprolol succinate ER 100 mg PO DAILY olmesartan 40 mg PO DAILY sertraline 50 mg PO DAILY varenicline tartrate 1 mg PO BID PFSH Medical History Tobacco abuse Gout Anxiety Ascending aortic aneurysm HTN (hypertension) Surgical History Hx of hand surgery Social History Are you a primary wound care technician to a significant other at home: No Do you presently have visiting nurse or other home services: No Patient Tobacco Use Status: Current everyday Tobacco user Tobacco use type: Cigarette Cigarette Packs Per Day: 1 Cigarettes Per Day: 20.0 Years Smoked: 32 Physical Exam Vital Signs: BMI result Body Mass Index 33.2 Extrem Other: Right knee examination shows minimal discomfort with range of motion, no instability Assessment & Plan Assessment & Plan (1) Right knee pain: Code(s): M25.561 - Pain in right knee Category: Medical Plan Mr. Ames continues to do fairly well after undergoing right knee arthroscopic surgery on 02/16/2024. He will continue with his physical therapy exercises. I have cleared him to return to work as per his request on 07/07/2024. He will follow up with me on an as-needed basis. I spent 20 minutes in reviewing the patient's records and imaging studies, seeing the patient and documenting in the medical record. Coding Level of Care Code Est Pt Level 3 (45816) Complex EM visit Add On G2211 Diagnoses Right knee pain M25.561
[2024-06-09 09:19] VITALS: BMI 33.2
--- OUTSIDE RECORDS SUMMARY | 2024-06-09 09:41 | XMS_ITS | Clinical Summary ---
Author Organization [facility] Address [address] [place], [place] Phone Care Team Providers Care Landscape Architect Name Role Phone Laura Solorzano MD Primary Care Provider [phone] Allergies No known active allergies Medications amLODIPine (NORVASC) 10 mg tablet Take 1 Tablet by mouth daily for 360 days. 05/13/2023 Active cholecalciferol (VITAMIN D-3) 125 mcg (5,000 unit) capsule Take 1 capsule (5,000 Units total) by mouth 1 (one) time each day. 06/18/2023 Active cyclobenzaprine (FLEXERIL) 5 mg tablet Take 1 Tablet by mouth at bedtime as needed for Muscle spasms for up to 30 days. 09/16/2023 Active metoprolol succinate (TOPROL-XL) 50 mg 24 hr tablet Take 1 Tablet by mouth daily for 360 days. 05/13/2023 Active nicotine (NICODERM CQ) 21 mg/[address] 1 Patch onto the skin every 24 hours for 30 days. 05/13/2023 Active sertraline (ZOLOFT) 50 mg tablet Take 1 tablet (50 mg total) by mouth 1 (one) time each day. 05/13/2023 Active sildenafiL (VIAGRA) 50 mg tablet Take 50 mg once daily as needed 1 hour before sexual activity. 10/06/2023 Active olmesartan (BENICAR) 40 mg tablet TAKE 1 TABLET BY MOUTH EVERY DAY 90 tablet 3 04/20/2024 Active Active Problems Problem Noted Date Diagnosed Date Aneurysm of ascending aorta without rupture 05/02 Vitamin D deficiency 05/20/2022 Anxiety 07/20/2021 Obesity (BMI 30.0-34.9) 2017 Chronic right shoulder pain 06/09/2017 Gout 06/09/2017 Hypertension 06/09/2017 Lateral epicondylitis of right elbow 06/09/2017 Encounters Date Type Department Care Team Description 03/11/2024 Telephone [facility] Cardiology [facility] [address] [place] [address] Laura Solorzano MD Medical Records from Last 3 Months Immunizations Name Administration Dates Next Due Influenza Quadravalent, MDCK , 0.5ml, preservative free (Flucelvax) 6mo and older 12/23/2022,12/25/2020 Tdap Tetanus diptheria acell ular pertussis (Boostrix; Adacel) 7yo and older 06/09/2017 Surgical History Surgery Date Site/Laterality Comments OTHER SURGICAL HISTORY PROCEDURE: MN REPAIR EXTENSOR TENDON FINGER W/GRAFT EACH Medical [...] 12/17/2023 11:00 AM EDT Plan of Treatment Upcoming Encounters Date Type Department Care Team (Late st Contact Info) Description 06/14/2024 1:00 PM EDT Office Visit Adult Medicine [facility] [place] [place] [address] [place] [address] Adam Nuno PA [address] [place] [address] Health Maintenance Due Date Last Done Comments [...] - 2023-2 5 season) 2023 03/27/2021, 07/17/2020 Depression Screening 05/12/2024 05/13/2023 Influenza Vaccine (Season Ended) 2024 12/23/2022, 12/25/2020 Cholesterol Screening (Lipid Panel) 07/20/2026 07/20/2021 DTaP,Tdap,and [...] age to complete this topic Meningococcal B Vaccine Aged Out No l onger eligible based on patient's age to complete [...] Maintenance Results * Depression Screening (05/13/2023) Pathologist [facility] Depression Screening abstracted [facility] Provider HEALTH MAINTENANCE Final Result * Annual BMP Blood Test (05/20/2022) Pathologist [facility] Annual BMP Blood Test abstracted [facility] Provider HEALTH MAINTENANCE Final Result * (ABNORMAL) Lipid panel (07/20/2021) [facility] LDL/HDL Ratio 5(A) 0 - 4 Triglycerides 161(A) 0 - 150 mg/dL Cholesterol 182 0 - 200 mg/dL HDL 39(A) >=40 mg/dL LDL Cholesterol 111(A) 0 - 100 mg/dL Blood Venous blood specimen / Unknown [facility] Provider LAB BLOOD ORDERABLES Isabel l Result * HIV Screening (06/09/2017) [facility] HIV Screening abstracted Result [facility] Provider HEALTH MAINTENANCE Final Result from Last 3 Months or Most Recently Relevant to Health Maintenance Insurance [employer] Care Teams Landscape Architect Relationship Specialty Start Date End Date Laura Solorzano MD [address] [place] [id number] PCP - General Internal Medicine 05/05/17
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
--- OUTSIDE RECORDS SUMMARY | 2024-06-09 09:41 | XMS_ITS | Encounter Summary ---
Author Organization [facility] Address [address] [place] [address] Care Team Providers Care Cane Weigher Name Role Phone Laura Solorzano MD Primary Care Provider [phone] Encounter Details Date Type Department Care Team Description 06/11/2017 Release of Information Medical Records [address] [place] [id number] Abstract, Provider Social History Tobacco Use Types Packs/Day Years Used Date Smoking Tobacco: Every Day Smokeless Tobacco: Current Comments:vaping Alcohol Use Standard Drinks/Week Comments No 0 (1 standard drink = 0.6 oz pur e alcohol) Sex Assigned at Date Recorded Not on file Job Start Date Occupation Industry Not on file Not on file Not on file documented as of this encounter Plan of Treatment Not on file documented as of this encounter Visit Diagnoses Not on filedocumented in this encounter Care Teams Cane Weigher Relationship Specialty Start Date End Date Laura Solorzano MD [address] [place] [address] [phone] PCP - General Internal Medicine 05/05/17 documented as of this encounter
--- OUTSIDE RECORDS SUMMARY | 2024-06-09 09:41 | XMS_ITS | Continuity of Care Document ---
Author Organization [facility] Address [address] [place] [address] Phone Care Team Providers Care Thermostat Machine Tender Name Role Phone [facility]fo [facility] Unavailable Unavailable Allergies, Adverse Reactions, Alerts Substance [...] Copied on Encounter [facility], [address] [place] [address], [id number], tel:[phone] [facility] No Information 0 Arnulfo [facility] Olena. [address], [place], [address], [place]. [phone] [facility], [address] [place] [address], [id number], [place] tel:[phone] [facility] right middle finger pain (chief complaint) No Information Oct- 0-201 0 NYDIA CERDA. [address], [id number], [place], [place], [id number] , [place]. [phone] Referring Provider: Reyes Jade[address], [address]. tel:[phone] Family History Family Member Type Diagnosis Age At Onset No Information Payers Payer name Insurance type Covered constitution party ID Authorravin stocktonhakeem(s) [facility] [id number] Social History Type Description Quantity Date Captured [...]
--- OUTSIDE RECORDS SUMMARY | 2024-06-09 09:41 | XMS_ITS | Encounter Summary ---
Author Organization [facility] Address [address] [place] [address] Care Team Providers Care Realtime Court Reporter Name Role Phone Laura Solorzano MD Primary Care Provider [phone] Reason for Visit * Reason Onset Date Comments medication problems 07/25/2021 pt states he should be on Celexa not Lexapro Encounter Details Date Type Department Care Team Description 07/25/2021 Telephone Adult Medicine [address] [phone] Laura Solorzano MD [address] [place] [address] [phone] medication problems (pt states he should be on Celexa not Lexapro) Social History Tobacco Use Types Packs/Day Years Used Date Smoking Tobacco: Every Day Cigarettes 0.5 Smokeless Tobacco: Never Comments:trying to quit Alcohol Use Standard Drinks/Week Comments No 0 (1 standard drink = 0.6 oz pur e alcohol) Sex Assigned at Date Recorded Not on file Job Start Date Occupation Industry Not on file Not on file Not on file COVID-19 Exposure Response Date Recorded In the last 10 days, have yo u been in contact with someone who was confirmed or suspected to have Coronavirus/COVID-19? No / Unsure 07/20/2021 12:56 PM EDT documented as of this encounter Miscellaneous Notes * Telephone Encounter - Majo Alonso M.A. - 07/25/2021 12:15 PM EDT I called pt, he advises he is fine with taking Lexapro as ordered. Pt advises he used to be on Celexa a long time ago * Telephone Encounter - Briana Tellez PA-C - 07/25/2021 11:57 AM EDT We never discussed this. Who was giving him the celexa and when? What was wrong with lexapro? Thank you Briana Tellez PA-C * Telephone Encounter - Majo Alonso M.A. - 07/25/2021 10:58 AM EDT Last appt with Briana Tellez PAC 07/20/21 Pt calling to advise he should have been prescribed Celexa, not Lexapro No history of Celexa ever being prescribed by this office * Telephone Encounter - Paty Sparks - 07/25/2021 10:54 AM EDT What is the name of the medication patient is having a problem with?: escitalopram (Lexapro) 10 MG tablet What is the problem?: needs to be celexa Is the patient calling about the problem? NO If the patient is not the caller who is? Is this a NEW medication?: YES How long has the patient been taking this medication? Who prescribed this medication for the patient? Laura Solorzano Who is patients PCP?: Laura Solorzano Payor: [employer] FFS / Plan: [facility] [employer] / Product Type: MEDICAID RISK documented in this encounter Plan of Treatment Not on file documented as of this encounter Visit Diagnoses Not on filedocumented in this encounter Care Teams Realtime Court Reporter Relationship Specialty Start Date End Date Laura Solorzano MD [address] [place] [address] PCP - General Internal Medicine 05/05/17 documented as of this encounter
--- OUTSIDE RECORDS SUMMARY | 2024-06-09 09:41 | XMS_ITS | Encounter Summary ---
Author Organization [facility] Address [address] [place] [address] Care Team Providers Care Waxer Name Role Phone Laura Solorzano MD Primary Care Provider [phone] Encounter Details Date Type Department Care Team Description 06/26/2020 Release of Information Medical Records [address] [place] [phone] Abstract, Provider Social History Tobacco Use Types [...] on filedocumented in this encounter Care Teams Waxer Relationship Specialty Start Date End Date Laura Solorzano MD [address] [place] [address] PCP - General Internal Medicine 05/05/17 documented as of this encounter
--- OUTSIDE RECORDS SUMMARY | 2024-06-09 09:41 | XMS_ITS | Encounter Summary ---
Author Organization [facility] Address [address] [place] [address] Care Team Providers Care Band Saw Marker Name Role Phone Laura Solorzano MD Primary Care Provider [phone] Encounter Details Date Type Department Care Team Description 12/01/2023 [facility] Medical Records [address] [place] [id number] [facility] Social History Tobacco Use Types Packs/Day Years Used Date Smoking Tobacco: Every Day Cigarettes 1 35 Smokeless Tobacco: Never Comments:trying to quit Alcohol [...] on filedocumented in this encounter Care Teams Band Saw Marker Relationship Specialty Start Date End Date Laura Solorzano MD [address] [place] [address] [id number] PCP - General Internal Medicine 05/05/17 documented as of this encounter
--- OUTSIDE RECORDS SUMMARY | 2024-06-09 09:42 | XMS_ITS | Encounter Summary ---
Author Organization [facility] Address [address] [place] [address] Care Team Providers Care Banking Consultant Name Role Phone Laura Solorzano MD Primary Care Provider [phone] Reason for Visit * Reason Onset Date Comments Testing 05/24/2022 Encounter Details Date Type Department Care Team Description 05/24/2022 Telephone Adult Medicine [address] [address] Adam Nuno, PAYumiko [address] [place] [phone] Testing Social History Tobacco Use Types Packs/Day Years [...] suspected to have Coronavirus/COVID-19? No / Unsure 05/22/2022 2:07 PM EDT documented as of this encounter Miscellaneous Notes * Telephone Encounter - Majo Brown M.A. - 05/24/2022 11:26 AM EDT Cologuard order form faxed to [employer] at fax# [phone] documented in this encounter Plan of Treatment Not on file documented as of this encounter Visit Diagnoses Not on filedocumented in this encounter Care Teams Banking Consultant Relationship Specialty Start Date End Date Laura Solorzano MD [address] [place] [id number] PCP - General Internal Medicine 05/05/17 documented as of this encounter
--- OUTSIDE RECORDS SUMMARY | 2024-06-09 09:42 | XMS_ITS | Clinical Summary ---
Author Organization [facility] Address [address] [place] [address] Care Team Providers Care Recreational Resort Manager Name Role Phone Laura Solorzano MD Primary Care Provider [phone] Allergies No known active allergies Medications Medication Sig Dispensed Refills Start Date End Date Status amlodipine (Norvasc) 10 MG tablet Take 1 Tablet by mouth daily for 360 days. 90 Tablet 3 05/13/2023 Active sertraline (ZOLOFT) 50 MG tablet Take one tablet by mouth once daily. 90 Tablet 3 05/13/2023 Active metoprolol (TOPROL-XL) 50 MG 24 hr tablet Take 1 Tablet by mouth daily for 360 days. 90 Tablet 3 05/13/2023 Active nicotine (NICODERM CQ) 21 MG/24HR Place 1 Patch onto the skin every 24 hours for 30 days. 28 Patch 1 05/13/2023 Active Cholecalciferol 125 MCG (5000 UT) Cap Take 1 Capsule by mouth daily. 90 Capsule 3 06/18/2023 Active olmesartan (BENICAR) 40 MG tablet Take 1 Tablet by mouth daily for 360 days. 90 Tablet 3 06/18/2023 06/12/2024 Active acetaminophen (Tylenol) 325 MG tablet Take 2 Tablets by mouth every 8 hours as needed for Pain for up to 180 days. 270 Tablet 3 09/16/2023 Active cyclobenzaprine (FLEXERIL) 5 MG tablet Take 1 Tablet by mouth at bedtime as needed for Muscle spasms for up to 30 days. 30 Tablet 0 09/16/2023 Active sildenafil (VIAGRA) 50 MG tablet Take 50 mg once daily as needed 1 hour before sexual activity. 12 Tablet 2 10/06/2023 Active Active Problems Problem Noted Date Aneurysm of ascending aorta without rupt ure 05/23/2022 Vitamin D deficiency 05/20/2022 Anxiety 07/20/2021 Tobacco abuse 2017 Obesity (BMI 30.0-34.9) 2017 Suboxone maintenance therapy 06/09/2017 Overview: History of fentynol abuse Gout 06/09/2017 Lateral epicondylitis of right elbow 11/2017 Chronic right shoulder pain 06/09/2017 Hypertension 06/09/2017 Immunizations Name Administration Dates Next Due COVID-19 ([employer]I [employer]) 07/17/2020 COVID-19 (Pfizer) 03/27/2021 Influenza Vaccine-preservati ve Free-quadrivalent 4 Years 12/23/2022,12/25/2020 Tdap 06/09/2017 Family History Medical History Relation Name Comments Diabetes Brother 1 No Known Problems Brother 2 Hypertension Father Brain Cancer Mother No Known Problems Sister Relation Name Status Comments Brother 1 Alive Brother 2 Alive Father Alive Mother Sister Alive Social History Tobacco Use Types Packs/Day Years Used Date Smoking Tobacco: Every Day Cigarettes 1 35 Smokeless Tobacco: Never Tobacco Cessation:Ready to Q uit: Not Asked; Counseling Given: Not Answered Comments:trying to quit Alcohol Use Standard Drinks/Week Comments No 0 (1 standard drink = 0.6 oz pur e alcohol) Sex Assigned at Date Recorded Not on file Job Start Date Occupation Industry Not on file Not on file Not on file Last Filed Vital Signs Vital Sign Reading Time Taken Comments Blood Pressure 120/70 12/17/2023 11:00 AM EDT Pulse 88 10/09/2023 10:04 AM EDT Temperature 36.6 ??C (97.9 ??F) 10/06/2023 3:53 PM ED T Respiratory Rate 16 10/09/2023 10:04 AM EDT Oxygen Saturation 98% 10/06/2023 3:53 PM EDT Inhaled Oxygen Concentration - - Weight 107.5 kg (237 lb) 12/17/2023 11:00 AM EDT Height 180.3 cm (5' 11 ) 12/17/2023 11:00 AM EDT Body Mass Index 33.05 12/17/2023 11:00 AM EDT Plan of Treatment Health Maintenance Due Date Last Done Comments COLON CANCER SCREENING 2018 SHINGLES VACCINE (1 of 2) 2018 Covid-19 Vaccine (3 - 2022-2 4 season) 2023 03/27/2021, 07/17/2020 BMI CHECK/ADVISE 03/03/2024 10/06/2023, , 06/18/2023, Additional history exists DEPRESSION SCREENING/FOLLOWUP 03/03/2024, 12/23/2022, 08/20/2022, Additional history exists SOCIAL NEEDS SCREENING 03/03/2024 04/13/2020, 2019 Lung Cancer Screening (Low D ose CT) 10/30/2024 10/31/2023, 05/22/2022 INFLUENZA (Season Ended) 2024 12/23/2022, 12/02 BASELINE HEALTH EXAM 40-64 03/14/2025 03/14/2023 TOBACCO CHECK/ADVISE 12/27/2025 12/28/2023, 12/01/2023, 10/13/2023, Additional history exists CHOLESTEROL SCREENING 07/20/2026 07/20/2021 , 07/20/2021, 05/22/2020, Additional history exists DTAP/TDAP/TD (2 - Td or Tdap) 06/10/2027 06/09/2017 PNEUMOCOCCAL VACCINE FOR HIG H RISK PATIENTS (#1) 2033 Care Teams Recreational Resort Manager Relationship Specialty Start Date End Date Laura Solorzano MD [address] [place] [id number] PCP - General Internal Medicine 05/05/17
--- OUTSIDE RECORDS SUMMARY | 2024-06-09 09:42 | XMS_ITS | Encounter Summary ---
Author Organization [facility] Address [address] [place] [address] Care Team Providers Care Boat Cleaner Name Role Phone Laura Solorzano MD Primary Care Provider [phone] Encounter Details Date Type Department Care Team Description 12/01/2023 SCAN Medical Records [address] [place] [id number] Abstract, Provider Social History Tobacco Use Types [...] on file documented as of this encounter Procedures Procedure Name Priority Date/Time Associated Diagnosis Comments OUTSIDE LAB Routine 12/01/2023 documented in this encounter Results * OUTSIDE LAB (12/01/2023) Provider Default LAB documented in this encounter Visit Diagnoses Not on filedocumented in this encounter Care Teams Boat Cleaner Relationship Specialty Start Date End Date Laura Solorzano MD [address] [place] [address] [phone] PCP - General Internal Medicine 05/05/17 documented as of this encounter
--- OUTSIDE RECORDS SUMMARY | 2024-06-09 09:42 | XMS_ITS | Encounter Summary ---
Author Organization [facility] Address [address] [place] [address] Care Team Providers Care Travel Services Professional Name Role Phone Laura Solorzano MD Primary Care Provider [phone] Encounter Details Date Type Department Care Team Description 12/01/2023 Orders Only Cardio [facility] [address] [place] [address] Drive [address] [place] [id number] Isai Saleh MD [address] [place] [address] [address] [place] [address] Aneurysm of ascending aorta without rupture (HCC) (Primary Dx) Social History Tobacco Use Types Packs/Day Years [...] on file documented as of this encounter Results * OK ECHO TTHRC R-T 2D W/WOM-MODE COMPL SPEC&COLR D (12/17/2023) Isai Saleh MD CARDIOLOGY [facility] documented in this encounter Visit Diagnoses Diagnosis Aneurysm of ascending aorta without rupture (HCC)- Primary documented in this encounter Care Teams Travel Services Professional Relationship Specialty Start Date End Date Laura Solorzano MD [address] [place] [address] [phone] PCP - General Internal Medicine 05/05/17 documented as of this encounter
--- OUTSIDE RECORDS SUMMARY | 2024-06-09 09:42 | XMS_ITS | Encounter Summary ---
Author Organization [facility] Address [address] [place] [address] Care Team Providers Care Sprinkler Fitter Apprentice Name Role Phone Laura Solorzano MD Primary Care Provider [phone] Reason for Visit * Reason Onset Date Comments Testing 07/10/2022 Encounter Details Date Type Department Care Team Description 07/10/2022 Telephone Adult Medicine [address] [address] Adam Nuno, PAMaeC [address] [place] [id number] Testing Social History Tobacco Use Types Packs/Day [...] Recorded In the last 10 days, have richard u been in contact with someone who was confirmed or suspected to have Coronavirus/COVID-19? No / Unsure 07/11/2022 11:00 AM EDT documented as of this encounter Miscellaneous Notes * Telephone Encounter - Majo Brown M.A. - 07/10/2022 12:04 PM EDT I called Pt re: Cologuard test kit that was sent to him by [employer] in 05/2022. He states that he will do it within the next week and send it back to them. documented in this encounter Plan of Treatment Not on file documented as of this encounter Visit Diagnoses Not on filedocumented in this encounter Care Teams Sprinkler Fitter Apprentice Relationship Specialty Start Date End Date Laura Solorzano MD [address] [place] [id number] PCP - General Internal Medicine 05/05/17 documented as of this encounter
== END 2024-06-09 09:39 | disposition home or self-care (01) ==
LOC: HO.HOS 09:09
PROVIDERS: PCP Internal Medicine; Visit Provider Orthopaedic Surgery
DX: M25.561 Pain in right knee (principal)
CPT/HCPCS: 99213; G2211

== ENCOUNTER → 2024-06-09 09:09 | Outpatient (BNVA) | payer OTHER, SELFPAY | PROVIDERS: PCP Internal Medicine; Visit Provider Orthopaedic Surgery | DX: M25.561 Pain in right knee (principal) | CPT/HCPCS: 99212 ==